=== PATIENT | female | born 1990 ===

== ENCOUNTER 2022-09-08 16:16 | Outpatient (CLI) | payer OTHER, SELFPAY ==
[2022-09-08 22:16] LABS: C Reactive Protein* < 0.5 mg/dL (0.5-1.0)
== END 2022-09-08 16:17 | disposition home or self-care (01) ==
LOC: LKVREF 16:17
PROVIDERS: PCP Physician Assistant Medical; Visit Provider Emergency Medicine
DX: M79.629 Pain in unspecified upper arm (principal); R59.0 Localized enlarged lymph nodes
CPT/HCPCS: 86140

== ENCOUNTER 2022-09-27 07:31 | Outpatient (CLI) | payer OTHER, SELFPAY ==
--- NOTE | 2022-09-27 07:45 | CRLHL7_ITS ---
For Patients: As a result of the Cures Act, medical imaging exams and procedure reports are released immediately into your electronic medical record. You may view this report before your referring provider. If you have questions, please contact your health care provider. DIGITAL DIAGNOSTIC BILATERAL MAMMOGRAM USING TOMOSYNTHESIS AND COMPUTER-AIDED DETECTION RIGHT BREAST ULTRASOUND BILATERAL AXILLARY ULTRASOUND CLINICAL HISTORY: BILATERAL axillary fullness, RIGHT nipple discharge. COMPARISON: None. TECHNIQUE: Digital BILATERAL mammogram in four projections. Tomosynthesis and CAD utilized. Real-time ultrasound imaging of RIGHT breast, RIGHT axilla and LEFT axilla with imaging documentation. BREAST COMPOSITION: The breasts are heterogeneously dense, which may obscure small masses. FINDINGS: 3D CC/MLO mammogram images demonstrate normal fibroglandular tissue without suspicious mass or suspicious calcifications. No architectural distortion or adenopathy. Targeted RIGHT breast ultrasound in the retroareolar region demonstrates normal dense fibroglandular tissue without dilated ducts or intraductal nodule. No suspicious findings. Additional area of tenderness at 9 o`clock 3 cm from the nipple was examined and there are no sonographic abnormalities in this location. Targeted RIGHT axillary ultrasound demonstrates normal RIGHT axillary lymph nodes with normal central fatty kalia and normal internal vascularity. The hypoechoic cortex is thin. Targeted LEFTT axillary ultrasound demonstrates normal LEFT axillary lymph node with normal central fatty hilum and thin hypoechoic cortex with normal internal vascularity. IMPRESSION: Normal BILATERAL mammograms, normal targeted RIGHT breast ultrasound and normal BILATEARL axillary ultrasounds. No evidence of malignancy. RECOMMENDATIONS: Clinical follow-up. Age-appropriate screening mammography. Results and recommendations discussed with the patient. BI-RADS Category 2: Benign A lay language report of this examination will be provided to the patient. Dictated by Fernando Jo MD @ 09/27/2022 10:42:58 AM jj/Dictated by: Fernando Jo MD @ 09/27/2022 10:42:00 AM (Electronically Signed)
--- NOTE | 2022-09-27 08:15 | CRLHL7_ITS ---
For Patients: As a result of the Cures Act, medical imaging exams and procedure reports are released immediately into your electronic medical record. You may view this report before your referring provider. If you have questions, please contact your health care provider. PLEASE SEE BILATERAL DIGITAL MAMMOGRAM PERFORMED SAME DAY CRL:[email or web address]/Dictated by: Fernando Jo MD @ 09/27/2022 10:40:00 AM (Electronically Signed)
--- NOTE | 2022-09-27 08:15 | CRLHL7_ITS ---
For Patients: As a result of the Cures Act, medical imaging exams and procedure reports are released immediately into your electronic medical record. You may view this report before your referring provider. If you have questions, please contact your health care provider. PLEASE SEE DIGITAL DIAGNOSTIC BILATERAL MAMMOGRAM PERFORMED SAME DAY CRL:[email or web address]/Dictated by: Fernando Jo MD @ 09/27/2022 10:40:00 AM (Electronically Signed)
== END 2022-09-27 07:32 | disposition home or self-care (01) ==
LOC: MAMMO 07:32
PROVIDERS: PCP Physician Assistant Medical; Visit Provider Emergency Medicine
DX: M79.629 Pain in unspecified upper arm; N64.52 Nipple discharge
CPT/HCPCS: 76642; 76882; 77066; G0279

== ENCOUNTER 2024-11-21 13:40 | Outpatient (CLI) | payer OTHER, SELFPAY | END 2024-11-21 13:41 | disposition home or self-care (01) | PROVIDERS: PCP Physician Assistant Medical; Visit Provider Physician Assistant Medical | DX: Z13.228 Encounter for screening for other metabolic disorders (principal); Z13.220 Encounter for screening for lipoid disorders; Z13.29 Encounter for screening for other suspected endocrine disorder | CPT/HCPCS: 80053; 80061; 84443 ==